=== PATIENT | female | born 1960 | race Caucasian/White ===

== ENCOUNTER 2019-01-12 18:54 | Emergency (ER) | payer BC, OTHER ==
[~2019-01-12] VITALS: Ht 157.5 cm; Wt 69.9 kg
[2019-01-12] MEDS ORDERED: CEFD300C3 PO (20:12)
--- NOTE | 2019-01-12 20:12 | ED Integumentary General ---
General Chief Complaint: Skin/Wound Problems Stated Complaint: R TOE SWOLLEN Nursing Triage Note: PT IS DIABETIC AND HAS BEEN TREATING A WOUND ON BOTTOM OF RIGHT FOOT FOR ABOUT 5 MONTHS. PT'S SECOND TOE BECAME RED AND SWOLLEN YESTERDAY. History of Present Illness Date Seen by Provider: Jan 12, 2019 Time Seen by Provider: 17:50 Initial Comments 58-year-old female presents for erythema to her right foot on the third toe and dorsum. She has been treating an ulcer to the plantar surface of her right foot for approximately 5 months at the clinic in [place]. She is diabetic, and reports that her last hemoglobin A1c was 8. She reports her last 2-3 days glucose have been 120-150. She is leaving for [facility] tomorrow. Timing/Duration: getting worse Severity: mild Location: feet (right) Possible Cause: no cause identified Associated Symptoms: denies symptoms Allergies and Home Medications Allergies Coded Allergies: No Known Drug Allergies (Unverified , 01/12/19) Home Medications Cefdinir 300 Mg Capsule, 300 MG PO BID Prescribed by: CAMILA BRIGHT on 01/12/192011 Patient Home Medication List Home Medication List Reviewed: Yes Review of Systems Review of Systems Constitutional: no symptoms reported, see HPI Skin: see HPI, change in color (erythema right foot) All Other Systems Reviewed Negative Unless Noted: Yes Past Vpcxvkq-Fvgmzj-Zexvxq Hx Past Med/Social Hx: Reviewed Nursing Past Med/Soc Hx Patient Social History Recent Foreign Travel: No Contact w/Someone Who Travel: No Recent Infectious Disease Expo: No Recent Hopitalizations: No Past Medical History Surgeries: Yes Section, Hysterectomy, Tubal Ligation Respiratory: No Cardiac: No Neurological: No Genitourinary: No Gastrointestinal: No Musculoskeletal: No Endocrine: Yes Diabetes, Non-Insulin dep HEENT: No Cancer: Yes Breast Psychosocial: No Integumentary: No Blood Disorders: No Physical Exam Vital Signs Vital Signs - First Documented 01/12/19 19:15 Temp 98.5 Pulse 96 Resp 16 B/P (MAP) 141/71 (94) Pulse Ox 98 O2 Delivery Room Air Capillary Refill : Less Than 3 Seconds General Appearance: WD/WN, no apparent distress Cardiovascular: normal peripheral pulses, regular rate, rhythm, no JVD, no murmur Respiratory: chest non-tender, lungs clear, normal breath sounds Extremities: normal range of motion, non-tender, no pedal edema, no calf tenderness, normal capillary refill Neurologic/Psychiatric: no motor/sensory deficits, alert, normal mood/affect, oriented x 3 Skin: normal color, warm/dry Skin Problem Location: lower extremities (right foot) Skin Problem Character: erythema (trace to the third toe and dorsal surface) Lymphatic: no adenopathy Progress/Results/Core Measures Results/Orders My Orders Orders - CAMILA BRIGHT Rx-Cefdinir Capsule (Rx-Omnicef Capsule) (01/12/19 21:00) Vital Signs/I&O 01/12/19 01/12/19 19:15 20:22 Temp 98.5 Pulse 96 90 Resp 16 18 B/P (MAP) 141/71 (94) 141/71 (94) Pulse Ox 98 98 O2 Delivery Room Air Room Air Blood Pressure Mean: 94 Departure Impression Primary Impression: Cellulitis of right foot Disposition: HOME, SELF-CARE Condition: Improved Departure-Patient Inst. Decision time for Depature: 20:10 Referrals: NO,LOCAL PHYSICIAN (PCP/Family) Primary Care Physician Patient Instructions: Cellulitis (Skin Infection), Adult (DC) Add. Discharge Instructions: Take antibiotics as prescribed. Elevate right foot. Maintaining a diabetic diet. Follow-up with primary care if symptoms are not improving or worsen. Continue to wear diabetic shoes. Return to emergency department if symptoms worsen. All discharge instructions reviewed with patient and/or family. Voiced understanding. Scripts Cefdinir (Cefdinir) 300 Mg Capsule 300 MG PO BID, #14 CAP 0 Refills Prov: CAMILA BRIGHT 01/12/19 CAMILA BRIGHT Jan 12, 2019 20:12
[2019-01-12 20:22] VITALS: BP 141/71
[2019-01-12] MEDS ORDERED: RX-CEFDINIR 300 MG CAP PPK #2 PO SCH (21:00)
== END 2019-01-12 20:22 | disposition home or self-care (01) ==
LOC: EDUNIT# 18:54 → ER 18:55
DX: L03.116 Cellulitis of left lower limb (principal); E11.9 Type 2 diabetes mellitus without complications; Z80.3 Family history of malignant neoplasm of breast; Z90.710 Acquired absence of both cervix and uterus; Z98.51 Tubal ligation status; Z98.890 Other specified postprocedural states
CPT/HCPCS: 99283

== ENCOUNTER → 2022-10-03 | Outpatient (CLI) | payer MEDICARE ==
[~2022-10-03] MED LIST: CEFD300C3 PO
[2022-10-03 15:22] LABS: ALBUMIN 3.6 GM/DL (3.2-4.5); BASOPHILS % (AUTO) 0 % (0-10); EOSINOPHILS # (AUTO) 0.2 10^3/uL (0.0-0.3); EOSINOPHILS % (AUTO) 2 % (0-10); HEMATOCRIT 37 % (35-52); LYMPHOCYTES # (AUTO) 1.6 X 10^3 (1.0-4.0); LYMPHOCYTES % (AUTO) 16 % (12-44); MEAN CORPUSCULAR HEMOGLOBIN 28 pg (25-34); MEAN CORPUSCULAR HGB CONC 33 g/dL (32-36); MEAN CORPUSCULAR VOLUME 86 fL (80-99); MEAN PLATELET VOLUME 9.2 fL (9.0-12.2); MONOCYTES # (AUTO) 0.5 X 10^3 (0.0-1.0); MONOCYTES % (AUTO) 5 % (0-12); NEUTROPHILS # (AUTO) 7.8 X 10^3 (1.8-7.8); NEUTROPHILS % (AUTO) 76 % (42-75); PLATELET COUNT 520 10^3/uL (130-400); POTASSIUM 3.9 MMOL/L (3.6-5.0); WHITE BLOOD COUNT 10.3 10^3/uL (4.3-11.0)
[2022-10-03 15:23] LABS: CALCIUM 9.5 MG/DL (8.5-10.1)
[2022-10-03 15:26] LABS: BILIRUBIN,TOTAL 0.4 MG/DL (0.1-1.0)
[2022-10-03 15:28] LABS: CREATININE SERUM 0.62 MG/DL (0.60-1.30); ERYTHROCYTE SEDIMENTATION RATE 134 MM/HR (0-30)
== END ==
LOC: WOUNDCARE 13:40
PROVIDERS: ATTEND Family Medicine
DX: L97.512 Non-pressure chronic ulcer of other part of right foot with fat layer exposed (principal); L03.031 Cellulitis of right toe; E11.40 Type 2 diabetes mellitus with diabetic neuropathy, unspecified; M14.671 Charcot's joint, right ankle and foot; E11.65 Type 2 diabetes mellitus with hyperglycemia; A49.01 Methicillin susceptible Staphylococcus aureus infection, unspecified site
CPT/HCPCS: 11042; 80053; 83036; 85025; 85652; 86141; 87070; 87077; 87205; A6197; G0463; L4360; 36415

== ENCOUNTER → 2022-10-08 | Outpatient (CLI) | payer MEDICARE | LOC: WOUNDCARE 12:08 | PROVIDERS: ATTEND Family Medicine | DX: L97.512 Non-pressure chronic ulcer of other part of right foot with fat layer exposed (principal); L03.031 Cellulitis of right toe; E11.40 Type 2 diabetes mellitus with diabetic neuropathy, unspecified; M14.671 Charcot's joint, right ankle and foot; E11.65 Type 2 diabetes mellitus with hyperglycemia; B95.62 Methicillin resistant Staphylococcus aureus infection as the cause of diseases classified elsewhere; E11.52 Type 2 diabetes mellitus with diabetic peripheral angiopathy with gangrene; I96 Gangrene, not elsewhere classified | CPT/HCPCS: 11042; G0463 ==

== ENCOUNTER → 2022-10-15 | Outpatient (CLI) | payer MEDICARE ==
[~2022-10-15] MED LIST changes: +GADOTERATE 0.5 MMOL/ML (CLARISCAN) 20 ML VIAL IV ONE
--- NOTE | 2022-10-15 16:06 | Diagnostic Imaging Report ---
Exam: MRI right foot without and with intravenous contrast. Date: October 15, 2022. Indication: 62-year-old female, ulcer in the region of the right great toe. Pain. Comparison: None. Technique: Multiple pre and postcontrast MRI sequences of the foot were obtained. Findings: There is T1 marrow signal loss and bone destruction involving the first proximal phalanx. There are also areas of T1 marrow signal loss in the first distal phalanx and first metatarsal. The marrow signal abnormalities in the first metatarsal extend near but do not directly contact the articulating surface. There is a large first metatarsophalangeal joint effusion. The medial and lateral sesamoids of the first digit are abnormally splayed in medial to lateral extent. There is a complete tear of the first digit flexor tendon. There is abnormal fluid in the first digit flexor tendon sheath consistent with tenosynovitis and potentially an infectious tenosynovitis. There is abnormal soft tissue enhancement and regions of osteomyelitis abutting the first digit flexor tendon. There is also soft tissue edema and enhancement at the level of the second proximal phalanx. The second proximal phalanx is dorsally subluxed/dislocated at the second metatarsophalangeal joint. There is no evidence of osteomyelitis at the level of the second digit. There is at least moderate midfoot arthritis. There is no identified focal fluid collection or abscess separate from the first metatarsophalangeal joint effusion. There is a skin defect near the level of the first distal phalanx which may reflect site of soft tissue ulcer. There is diffuse fatty atrophy of the visualized foot musculature consistent with polyneuropathy. Impression: 1. Osteomyelitis involving the first distal phalanx, first proximal phalanx, and first metatarsal extending proximally near the articulating surface of the first metatarsal which is not clearly involved. 2. Septic arthritis involving the first metatarsophalangeal joint with very large joint effusion at this articulation. 3. Abnormal medial to lateral splaying of the first digit sesamoids at the level of the metatarsophalangeal joint. 4. Complete tear of the first digit flexor tendons with tenosynovitis. The tenosynovitis is nonspecific although may be infectious. 5. Extensive soft tissue edema without identified focal fluid collection or abscess separate from the joint effusion. 6. The second proximal phalanx is dorsally subluxed/dislocated at the second metatarsophalangeal joint. 7. Diffuse fatty muscle atrophy likely reflecting polyneuropathy. Dictated by: Dictated on workstation # [id number]
== END ==
LOC: RAD 13:35
PROVIDERS: ATTEND Family Medicine
DX: M86.8X6 Other osteomyelitis, lower leg (principal); M19.09 Primary osteoarthritis, other specified site; M25.48 Effusion, other site; M25.871 Other specified joint disorders, right ankle and foot; S86.911A Strain of unspecified muscle(s) and tendon(s) at lower leg level, right leg, initial encounter; R60.9 Edema, unspecified; M65.861 Other synovitis and tenosynovitis, right lower leg; M62.58 Muscle wasting and atrophy, not elsewhere classified, other site; L97.512 Non-pressure chronic ulcer of other part of right foot with fat layer exposed; L03.031 Cellulitis of right toe; E11.40 Type 2 diabetes mellitus with diabetic neuropathy, unspecified; M14.671 Charcot's joint, right ankle and foot; E11.65 Type 2 diabetes mellitus with hyperglycemia; A49.01 Methicillin susceptible Staphylococcus aureus infection, unspecified site; E11.621 Type 2 diabetes mellitus with foot ulcer
CPT/HCPCS: 73720

== ENCOUNTER 2022-10-31 05:36 | Outpatient (CLI) | payer MEDICARE ==
[~2022-10-31] VITALS: Ht 157.5 cm; Wt 67.8 kg
[~2022-10-31 05:36] MED LIST changes: -GADOTERATE 0.5 MMOL/ML (CLARISCAN) 20 ML VIAL IV ONE
[2022-10-31] MEDS ORDERED: LINA1TAB7 PO (15:37)
[2022-10-31] MEDS ORDERED: SERT-414 PO (15:37)
[2022-10-31] MEDS ORDERED: GBPN600T PO (15:37)
[2022-10-31] MEDS ORDERED: ATEN50TA PO (15:37)
[2022-10-31] MEDS ORDERED: ATOR80TA76 PO (15:37)
[2022-10-31] MEDS ORDERED: GLIP10TA24 PO (15:37)
[2022-10-31] MEDS ORDERED: LISI20TA26 PO (15:37)
[2022-10-31] MEDS ORDERED: AMOX1TAB12 PO (15:37)
== END 2022-10-31 15:41 | disposition home or self-care (01) ==
LOC: PREOP 05:36
PROVIDERS: ATTEND Surgery
DX: Z01.818 Encounter for other preprocedural examination (principal)

== ENCOUNTER 2022-11-07 11:40 | Day surgery (SDC) | payer MEDICARE ==
[~2022-11-07] VITALS: Ht 157.5 cm; Wt 67.8 kg
[2022-11-07] VITALS (9 sets, daily range): BP systolic 97–135; BP diastolic 45–66
[2022-11-07] MEDS: LACTATED RINGERS 1,000 ML IV PRN ×2 (11:30→12:30)
[~2022-11-07 11:40] MED LIST changes: +AMOX1TAB12 PO; +ATEN50TA PO; +ATOR80TA76 PO; +GBPN600T PO; +GLIP10TA24 PO; +LINA1TAB7 PO; +LISI20TA26 PO; +SERT-414 PO
--- NOTE | 2022-11-07 12:55 | Progress Note-Pre Operative ---
Pre-Operative Progress Note Date H&P Reviewed: Nov 07, 2022 Time H&P Reviewed: 12:55 History & Physical: H&P Reviewed, Patient Examed, No changes noted Pre-Operative Diagnosis: right foot osteomyelits LYDIA PEDRAZA DO Nov 07, 2022 12:55
[2022-11-07] MEDS ORDERED: BUP/EPI 0.5% 1:200,000 (SENSORCAINE) 30 ML VIAL ONE (12:58)
[2022-11-07] MEDS ORDERED: MIDAZOLAM 2 MG/2 ML (VERSED) VIAL ONE (13:05)
[2022-11-07] MEDS ORDERED: fentaNYL INJ 100 MCG/2 ML AMP ONE (13:05)
[2022-11-07] MEDS ORDERED: LIDOCAINE PF 2% 5 ML (XYLOCAINE) VIAL ONE (13:05)
[2022-11-07] MEDS ORDERED: ONDANSETRON 4 MG/2 ML (SDV) Z0FRAN ONE (13:05)
[2022-11-07] MEDS ORDERED: SEVOFLURANE (ULTANE) 15 ML INHAL SOLN ONE (13:05)
[2022-11-07] MEDS ORDERED: proPOfol 200 MG/20 ML (DIPRIVAN) VIAL IV ONE (13:05)
[2022-11-07] MEDS ORDERED: ceFAZolin INJECTION 2,000 MG in NS (IVPB) 50 ML IV ONE (13:15)
[2022-11-07] MEDS ORDERED: BUP/EPI 0.5% 1:200,000 (SENSORCAINE) 30 ML VIAL INJ ONE (13:56)
[2022-11-07] MEDS ORDERED: PHENYLEPHRINE 100 MCG/ML 10 ML (ANESTHESIA) SYR ONE (14:37)
[2022-11-07] MEDS ORDERED: fentaNYL INJ 100 MCG/2 ML AMP IVP ONE (14:45)
[2022-11-07] MEDS ORDERED: morphine INJ 10 MG/ML 1ML (SYR OR VIAL) IVP ONE (14:45)
[2022-11-07] MEDS ORDERED: MEPERIDINE (DEMEROL) INJ 50 MG/ML IVP ONE (14:45)
--- NOTE | 2022-11-07 14:46 | Anesthesia-General Post-Op ---
General Patient Condition Mental Status/LOC: Same as Preop Cardiovascular: Satisfactory Nausea/Vomiting: Absent Respiratory: Satisfactory Pain: Controlled Complications: Absent Post Op Complications Complications None Follow Up Care/Instructions Patient Instructions None needed. Anesthesia/Patient Condition Patient Condition Patient is doing well, no complaints, stable vital signs, no apparent adverse anesthesia problems. No complications reported per nursing. POLA DYSON CRNA Nov 07, 2022 14:46
[2022-11-07] MEDS ORDERED: ACHD5005 PO (15:05)
[2022-11-07] MEDS ORDERED: DOCU-143 PO (15:05)
--- NOTE | 2022-11-07 15:11 | Discharge Inst-Simple/Standard ---
Discharge Inst-Standard Discharge Medications New, Converted or Re-Newed RX: Transmitted to Pharmacy Patient Instructions/Follow Up Plan of Care/Instructions/FU: Bucky Nurse visit tomorrow. Bucky appointment for 2 week. Wound care appointment. Activity as Tolerated: No Discharge Diet: Regular Diet Other Inst to Patient Follow up Appt: Bucky Nurse visit tomorrow. Bucky appointment for 2 week. Wound care appointment. Instructions: Walk on right heel. No lifting greater than 10 pounds. No strenuous activity. May shower in 24 hours, no tub bath or soaking. Use incentive spirometer at home as directed. No Smoking Skin/Wound Care: You have an open wound packed. Bring someone with you tomorrow to learn how to pack wound with Dr. Lawler nurse. Need daily irrigation and packing. Symptoms to Report: Appetite Changes, Extremity Discoloration, Numbness/Tingling, Swelling Increased, Bleeding Excessive, Eyesight Changes, Pain Increased, Urine Color Change, Constipation(Persistent), Fever over 101 degree F, Pain/Pressure in chest, Urinating Difficulty, Cough Up/Vomit Blood, Heart Beat Irreg/Pounding, Pain/Pressure in jaw, Vaginal Bleeding Increase, Cramps in feet or legs, Lightheadedness, Pain/Pressure in shoulder, Diarrhea(Persistent), Memory Changes Suddenly, Questions/Concerns, Weight gain consecutive days, Dizziness/Fainting, Nausea/Vomiting, Shortness of Breath, Weight gain over 2 pounds If questions or concerns contact your physician Or seek help at emergency department. LYDIA LAWLER DO Nov 07, 2022 15:11
--- NOTE | 2022-11-07 16:23 | Progress Note-Post Operative ---
Post-Operative Progess Note Surgeon (s)/Application Integration Specialist (s) Surgeon LYDIA PEDRAZA DO Application Integration Specialist: na Pre-Operative Diagnosis right foot osteomyelits Post-Operative Diagnosis same Procedure & Operative Findings Date of Procedure 11/07/22 Procedure Performed/Findings right ankle block, right 1st ray amputation and washout Anesthesia Type general Estimated Blood Loss Estimated blood loss (mL): 100 mL Specimens/Packing Specimens Removed right first ray Packing: Iodoform LYDIA PEDRAZA DO Nov 07, 2022 16:23
--- NOTE | 2022-11-08 15:31 | OPERATIVE REPORT ---
DATE OF SERVICE: 11/07/2022 PREOPERATIVE DIAGNOSIS: Right foot osteomyelitis. POSTOPERATIVE DIAGNOSIS: Right foot osteomyelitis. PROCEDURE: Right ankle block, right first ray amputation and washout. SURGEON: Lydia Lawler DO ANESTHESIA: General. ESTIMATED BLOOD LOSS: 200 mL COMPLICATIONS: None. INDICATIONS: The patient is a 62-year-old female with osteomyelitis of the first ray. She also has ulceration as well. She understands risks and benefits of procedure and wished to proceed. Consent was signed in chart. DESCRIPTION OF PROCEDURE: The patient was taken to the operating suite. She was prepped and draped in sterile fashion. Timeout was performed. Right ankle block was performed injecting posterior to the medial and lateral malleolus and also [ ] across the dorsum of the foot. A teardrop incision was made along the first ray incorporating around the great toe and incorporating around the ulceration on the plantar portion of the foot. Cautery was used to dissect down through the subcutaneous tissues, muscle and fascia until the great toe was removed. Sesamoid bones were removed and the first ray was dissected around and removed. Hemostasis was achieved. A culture was also obtained. The wound was then irrigated with copious amounts of irrigation. Hemostasis was achieved. The wound was then packed with iodoform and sterile bandage was applied. The patient tolerated the procedure well without any complications, taken to recovery room in stable condition. Job ID: [id number] DocumentID: [id number] Dictated Date: 11/08/2022 09:28:30 Food And Beverage Associate Date: 11/08/2022 15:29:00 Dictated By: LYDIA LAWLER DO
== END 2022-11-07 16:35 | disposition home or self-care (01) ==
LOC: SDC 11:40
PROVIDERS: ATTEND Surgery
DX: M86.9 Osteomyelitis, unspecified (principal); L97.519 Non-pressure chronic ulcer of other part of right foot with unspecified severity; Z87.891 Personal history of nicotine dependence
CPT/HCPCS: 82947; 87070; 87075; 87077; 87081; 87205

== ENCOUNTER → 2022-11-12 | Outpatient (CLI) | payer MEDICARE ==
[~2022-11-12] MED LIST changes: +ACHD5005 PO; +DOCU-143 PO
== END ==
LOC: WOUNDCARE 12:56
PROVIDERS: ATTEND Family Medicine
DX: L03.031 Cellulitis of right toe (principal); E11.40 Type 2 diabetes mellitus with diabetic neuropathy, unspecified; M14.671 Charcot's joint, right ankle and foot; E11.65 Type 2 diabetes mellitus with hyperglycemia; A49.01 Methicillin susceptible Staphylococcus aureus infection, unspecified site; L97.514 Non-pressure chronic ulcer of other part of right foot with necrosis of bone; M86.171 Other acute osteomyelitis, right ankle and foot; M65.871 Other synovitis and tenosynovitis, right ankle and foot; E11.52 Type 2 diabetes mellitus with diabetic peripheral angiopathy with gangrene
CPT/HCPCS: A6260; G0463; 99212